=== PATIENT | male | born 1985 | race Caucasian/White ===

== ENCOUNTER 2022-03-21 20:24 | Emergency (ER) | payer OTHER, SELFPAY ==
[2022-03-21 20:31] VITALS: BP 142/87; PULSE 80; RESP 18; TEMP 37.1; O2SAT 98; BMI 25.1
--- NOTE | 2022-03-21 20:37 | W.ED.WOUNDLC ---
HPI - Wound/Laceration General: Chief Complaint: Wound/Laceration Stated Complaint: Left Face Laceration Time Seen by Provider: 03/21/22 20:37 History of Present Illness: 36-year-old male patient was trying to stop his great Syd from getting into a fight with another dog when he cut his face along the left side of his jaw. Patient states his tetanus shot is up-to-date. Patient denies any loss of consciousness. Patient reports minimal pain. Patient appears nontoxic. Patient appears in mild to no pain. Review of Systems General: Reports: 10 or more systems reviewed and unremarkable except in HPI and below Skin/Breast: Reports: other (Laceration left jawline) Physical Exam Const: COMMON NORMALS: alert HENMT: FACE & SINUS: laceration (7 cm laceration to the left jawline) THROAT: posterior oropharynx normal Neck/C-Spine: COMMON NORMALS: full ROM Resp: COMMON NORMALS: normal respiratory effort Cardio: COMMON NORMALS: regular rate RATE: regular rate Extremity: COMMON NORMALS: normal to inspection Neuro: SENSORIUM/ORIENTATION: Yes alert Skin: TRAUMA: laceration (Left face) linear Procedures Laceration Laceration 1: Site: face Side (If applicable): left Size (cm): 7 Description: linear Depth: simple, single layer Local Anesthetic: lidocaine 1% Amount of anesthesia used (mL): 6 Pre-repair: wound explored, irrigated extensively and deep structures intact Skin layer closed with: vicryl Size (cm): 4-0 Number of sutures: 9 Technique: simple, interrupted (5) and horizontal mattress (4) Course Vital Signs: Vital signs: Vital Signs Temperature 98.8 F 03/21/22 20:31 Pulse Rate 80 03/21/22 20:31 Respiratory Rate 18 03/21/22 20:31 Blood Pressure 142/87 03/21/22 20:31 Pulse Oximetry 98 03/21/22 20:31 Oxygen Delivery Me thod 03/21/22 20:31 MDM - Wound/Laceration Medical Decision Making 36-year-old male patient comes in today with laceration to the left face. On exam patient has a 7 cm laceration to the left facial jawline. No fracture is noted in the jaw. Teeth are intact. No foreign bodies are noted. Patient's tetanus is up-to-date. Differential diagnosis include fracture, laceration, foreign body, need for prophylaxis tetanus. Reviewed exam with patient with recommendations for treatment. Wound was closed with Vicryl sutures. Patient tolerated well. Post procedure care instructions was reviewed with patient. All questions were answered. Patient understands need for follow-up or return to the ER. Discharge Plan Discharge Patient Disposition: Home Clinical Impression: Laceration of face Qualifiers: Encounter type: initial encounter Qualified Code(s): S01.81XA - Laceration without foreign body of other part of head, initial encounter Condition: Stable Prescriptions: New cephalexin 500 mg tablet 500 mg PO BID 7 Days Qty: 14 0RF Discharge Orders: Discharge ED (Routine); Ordered 03/21/22 Ordered By: Jamie Castillo Referrals: Niranjan Fairchild MD [Primary Care Provider] - Discharge Diet: Usual diet Discharge Activity: Increase activity as tolerated Patient Instructions: Facial Laceration (ED) Activity Restrictions/Additional Instructions: Keep wound clean and dry. Is very important to keep the wound as dry as possible for the next 48 hours. This helps prevent infection. After that you can wash the wound daily with mild soap and water then dry thoroughly. Avoid submersion underwater for long periods of time. Take cephalexin 500 mg 1 tablet twice a day for the next 7 days. Sutures can come out in 7 to 10 days. The sutures are absorbable but most likely will not be out in 7 to 10 days. Coding Level of Care Code ED [employer] for Radha Still
[2022-03-21] MEDS: cephALEXin 500 mg Capsule PO (21:18)
== END 2022-03-21 21:19 | disposition home or self-care (01) ==
PROVIDERS: Emergency Provider Nurse Practitioner Family; PCP Family Medicine
DX: S01.81XA Laceration without foreign body of other part of head, initial encounter (principal); X58.XXXA Exposure to other specified factors, initial encounter
CPT/HCPCS: 12015; 99283